=== PATIENT | male | born 1965 | race American Indian/Alaskan Native ===

== ENCOUNTER 2020-08-22 17:14 | Emergency (ER) | payer BC ==
[2020-08-22 18:29] VITALS: BP 151/107
--- NOTE | 2020-08-22 19:47 | Emergency Department Report ---
ED General Adult HPI - General Chief complaint: Extremity Injury, Upper Stated complaint: INFECTED FINGER RT HAND Time Seen by Provider: 08/22/20 19:37 Source: patient Mode of arrival: Ambulatory Limitations: No Limitations - History of Present Illness Initial comments: 55-year-old [id number] male patient presents emergency department with complaints of painful swelling to his right third finger for 2 weeks. Patient states his symptoms have actually improved over the last week. However, today his sister looked at his finger and told him he needed to come to the emergency department for further evaluation. No preceding fall, trauma, or injury. Patient states he has been soaking the finger in alcohol and Epsom salt. He attempted to "poke at it with a needle from a first-aid kit to see if it had fluid in it," which was unsuccessful. He is not currently on oral antibiotics. Denies fever, chills, purulent drainage, bleeding, paresthesias, numbness. Denies all other complaints at this time. - Related Data Previous Rx's Medication Instructions Recorded Last Taken Type cephALEXin [Keflex] 500 mg PO Q12HR 5 Days cap 08/22/20 Unknown Rx Allergies Allergy/AdvReac Type Severity Reaction Status Date / Time No Known Allergies Allergy Unverified 08/22/20 18:23 ED Review of Systems ROS: Stated complaint: INFECTED FINGER RT HAND Other details as noted in HPI Other: GENERAL: Negative for fever. CARDIOVASCULAR: Negative for chest pain. PULMONARY: Negative for shortness of breath. GASTROINTESTINAL: Negative for abdominal pain. MUSCULOSKELETAL: Positive for finger pain. NEUROLOGICAL: Negative for headache. INTEGUMENTARY: Negative for rash. ED Past Medical Hx - Past Medical History Previous Medical History?: Yes Hx Hypertension: Yes - Surgical History Additional Surgical History: ankle, head - Social History Smoking Status: Never Smoker - Medications Home Medications: Home Medications Medication Instructions Recorded Confirmed Last Taken Type cephALEXin [Keflex] 500 mg PO Q12HR 5 Days cap 08/22/20 Unknown Rx ED Physical Exam - General Limitations: No Limitations - Other Other exam information: General: Awake, appropriately interactive, no acute distress. Neck: Supple. Full range of motion intact. Cardiovascular: Normal peripheral perfusion. Pulmonary: No respiratory distress. Patient is speaking normally without use of accessory muscles. Skin: No apparent rashes or lesions. Neurological: No facial asymmetry. Speech is clear. Follows commands. Patient is alert and oriented. Musculoskeletal: Soft tissue swelling localized to the dorsal aspect of the right third finger along the base of the nailbed. Minimal tenderness with deep palpation. No purulent drainage. No overlying warmth or erythema. Strength and sensation intact. Brisk capillary refill. Psych: Cooperative. Appropriate mood and affect. ED Course Vital Signs 08/22/20 18:19 Temperature 98.5 F Pulse Rate 80 Respiratory 15 Rate Blood Pressure 151/107 O2 Sat by Pulse 96 Oximetry ED Medical Decision Making - Medical Decision Making Differential diagnosis including but not limited to: paronychia, felon, abscess, cellulitis, herpetic salo, septic arthritis, rheumatoid arthritis, osteoarthritis, gout, pseudogout, flexor tenosynovitis Patient presents to the emergency department with complaints of painful swelling to his right third finger for 2 weeks. Patient states his symptoms have actually improved with home remedies; however, his sister recommended emergency department evaluation. The patient is afebrile, hemodynamically stable, neurovascularly intact. There is no fluctuance or purulence to warrant incision and drainage at this time. Symptoms are localized to the distal aspect of the affected digit. No preceding trauma. No clinical indication for further diagnostic work-up on an emergent basis at this time. No known history of MRSA. Patient will be discharged home with short course of Keflex and instructed to continue applying warm compresses to the affected area. Emphasized the importance of refraining from attempting to express purulent matter from the affected area without medical supervision. Patient expressed understanding and is agreeable to plan of care. Referred to primary care provider for close outpatient follow-up. Strict return precautions provided. History, exam, diagnostic testing, and current condition do not suggest worrisome pathology to warrant further testing, continued ED treatment, admission, or surgical evaluation at this point. Given the low probability of a significant medical illness, it would be more likely to result in harm than benefit to perform further testing at this stage. Discussed findings, presumptive diagnosis, need for follow-up and specific signs/symptoms that should prompt immediate return to the emergency department. Instructions were explained in detail to the patient in addition to giving written discharge information. Patient expressed understanding and was given the opportunity to ask questions, all of which were satisfactorily answered prior to discharge home. Critical care attestation.: If time is entered above; I have spent that time in minutes in the direct care of this critically ill patient, excluding procedure time. ED Disposition Clinical Impression: Paronychia of finger Qualifiers: Laterality: right Qualified Code(s): L03.011 - Cellulitis of right finger Disposition: DC- TO HOME OR SELFCARE Is pt being admited?: No Does the pt Need Aspirin: No Condition: Stable Instructions: Paronychia Additional Instructions: Take Keflex with food as directed. Apply warm compresses to the affected area 3 times daily. Do not forcefully attempt to express drainage from the area. Follow-up with primary care provider this week. Call tomorrow to schedule an appointment. Return to the emergency department immediately for new or worsening symptoms. Prescriptions: cephALEXin [Keflex] 500 mg PO Q12HR 5 Days cap Referrals: SHAUNA NASH MD [Staff Physician] - 3-5 Days [facility] [Provider Group] - 3-5 Days Time of Disposition: 19:47
== END 2020-08-22 20:00 | disposition home or self-care (01) ==
LOC: ED 17:14
DX: L03.011 Cellulitis of right finger (principal); I10 Essential (primary) hypertension; Z79.899 Other long term (current) drug therapy; Z98.890 Other specified postprocedural states
CPT/HCPCS: 99281